=== PATIENT | male | born 1995 | race African-American/Black ===

== ENCOUNTER 2019-06-17 14:59 | Emergency (ER) | payer OTHER ==
[~2019-06-17] VITALS: Ht 167.6 cm; Wt 109.1 kg
[2019-06-17 15:04] VITALS: Ht 167.6 cm; Wt 109.1 kg
[2019-06-17] MEDS ORDERED: IBUPROFEN800 MG PO (16:58)
[2019-06-17] MEDS ORDERED: ANUSOL-HC25 MG RC (16:59)
[2019-06-17 17:08] VITALS: BP 130/80
== END 2019-06-17 17:08 | disposition home or self-care (01) ==
LOC: D.ER 14:59
DX: K64.9 Unspecified hemorrhoids (principal); K62.89 Other specified diseases of anus and rectum

== ENCOUNTER → 2020-03-15 15:27 | Outpatient (CLI) | payer OTHER ==
[2019-06-17 15:04] VITALS: BMI 38.8
[~2020-03-15 15:27] MED LIST: ANUSOL-HC25 MG RC; IBUPROFEN800 MG PO
== END | disposition home or self-care (01) ==
LOC: D.RAD 15:27
PROVIDERS: ATTEND Nurse Practitioner Family
DX: R10.32 Left lower quadrant pain (principal); R19.7 Diarrhea, unspecified